=== PATIENT | male | born 1965 | race Caucasian/White ===

== ENCOUNTER 2021-09-13 01:59 | Observation (INO) | payer OTHER, SELFPAY ==
[2021-09-13] VITALS (26 sets, daily range): BP systolic 116–171; BP diastolic 78–98; PULSE 59–103; RESP 7–24; TEMP 36.3; O2SAT 97–100
--- NOTE | ~2021-09-13 | XR_ITS ---
EXAMINATION: XR chest 1V portable DATE: 09/13/2021 03:05 INDICATION: Weakness TECHNIQUE: frontal view of the chest was obtained. COMPARISON: None FINDINGS: Subtle small bandlike opacity lateral left midlung zone consistent with discoid atelectasis. No other airspace opacities, pulmonary edema, pleural effusion or pneumothorax. The cardiomediastinal silhoue tte is normal. IMPRESSION: 1. Mild linear discoid atelectasis/scarring the left midlung zone. Reviewed, dictated and finalized at location A.
--- NOTE | ~2021-09-13 | MR_ITS ---
EXAMINATION: MR brain/brain stem wo/w con DATE: 09/16/2021 13:25 INDICATION: Left hemiparesis. TECHNIQUE: Magnetic resonance imaging (MRI) of the brain and brainstem was performed without and with 17 mL MultiHance intravenous contrast. COMPARISON: Head CT 09/13/2021 FINDINGS: In the inferior left frontal lobe and genu of the corpus callosum, there are subacute infar cts characterized by decreased ADC and contrast enhancement. In the anterior interhemispheric fissure , there is material characterized by increased T2- and T1-weighted signal intensity. There are scatte red areas of nonspecific increased T2-weighted signal intensity in the cerebral white matter. There i s no abnormal mass lesion. The ventricles are normal in size. The paranasal sinuses are clear. The or bits are normal. The mastoid air cells are normal. IMPRESSION: 1. 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 2. Small volume of material in the anterior interhemispheric fissure, likely subacute hematoma. 3. Mild nonspecific cerebral white matter disease, which likely represents chronic small vessel ische israel disease. Reviewed, dictated and finalized at location A. IMPRESSION: 1. Subacute infarcts involving the inferior left frontal lobe and genu of the c orpus callosum. 2. Small volume of material in the anterior interhemispheric fissure, likely clark bacute hematoma. 3. Mild nonspecific cerebral white matter disease, which likely represents coiled coil inspector gabriela small vessel ischemic disease.
--- NOTE | ~2021-09-13 | US_ITS ---
EXAMINATION: US carotid duplex BI DATE: 09/16/2021 17:55 INDICATION: Left hemiparesis. Stroke. TECHNIQUE: Grayscale, color Doppler, and pulsed Doppler images of the cervical carotid arteries were obtained. The degree of vessel stenosis is placed in one of the following categories: normal, <50%, 5 0-69%, >=70% but less than near-occlusion, near-occlusion, or total occlusion. Note that percent sten osis relative to normal distal artery lumen diameter is indirectly measured from velocity measurement s as described by Suleiman, et al. Radiology 2003; 229:340-346. COMPARISON: None. FINDINGS: RIGHT: The right common carotid artery (CCA) peak systolic velocity (PSV) is 97 cm/s. The right internal car otid artery (ICA) PSV is 90 cm/s. The right ICA end-diastolic velocity (EDV) is 27 cm/s. The right IC A/CCA PSV ratio is 0.9. Grayscale and color Doppler images yield an estimate of <50% diameter reducti on from plaque in the ICA. There is antegrade flow in the right vertebral artery. LEFT: The left CCA PSV is 92 cm/s. The left ICA PSV is 101 cm/s. The left ICA EDV is 36 cm/s. The left ICA/ CCA PSV ratio is 1.1. Grayscale and color Doppler images yield an estimate of <50% diameter reduction from plaque in the ICA. There is antegrade flow in the left vertebral artery. IMPRESSION: 1. <50% stenosis in the right internal carotid artery. 2. <50% stenosis in the left internal carotid artery. Reviewed, dictated and finalized at location A.
--- NOTE | ~2021-09-13 | CT_ITS ---
EXAMINATION: CT brain wo con DATE: 09/13/2021 03:24 INDICATION: Diplopia. Right facial weakness. Left arm numbness. TECHNIQUE: Computed tomography (CT) of the head was performed without intravenous contrast. The mA wa s adjusted according to patient size. Iterative reconstruction technique was employed. The dose-lengt h product was 681.00 mGy-cm. COMPARISON: None FINDINGS: There is low attenuation involving the genu and anterior body of the corpus callosum. There is low-attenuation in the deep bilateral frontal lobe white matter. There is no intracranial hemorrh age or abnormal mass lesion. The ventricles are normal in size. The orbits are normal. There is mild mucosal thickening in the paranasal sinuses. The mastoid air cells are normal. IMPRESSION: 1. Low attenuation involving the genu and anterior body of the corpus callosum and bilateral frontal lobe deep white matter, likely subacute or chronic encephalomalacia that could be from infarct or dif fuse axonal injury. Reviewed, dictated and finalized at location B. IMPRESSION: 1. Low attenuation involving the genu and anterior body of the corpus callosum and bilateral frontal lobe deep white matter, likely subacute or chronic enceph alomalacia that could be from infarct or diffuse axonal injury.
--- NOTE | 2021-09-13 02:14 | ECG_ITS ---
Measurements Intervals [place] Rate: 88 P: 56 UT: 174 QRS: 25 QRSD: 107 T: 41 QT: 347 QTc: 421 Interpretive Statements SINUS RHYTHM BORDERLINE ST-T WAVE ABNORMALITY- INF/LAT LEADS BASELINE ARTIFACT- I, II, III, AVR, AVL, AVF BORDERLINE ECG Electronically Signed On 09-13-2021 6:43:14 CDT by Michael Ferrell D.O.
[2021-09-13 02:17] LABS: Glucose Point of Care 119 mg/dl (65-105)
[2021-09-13 02:33] LABS: Basophils Absolute Auto 0.1 K/mm3 (0.0-0.1); Basophils Percent Auto 0.6 % (0.2-1.2); Eosinophils Absolute Auto 0.1 K/mm3 (0-0.3); Eosinophils Percent Auto 0.6 % (0-4.4); Hematocrit 48.5 % (42.0-52.0); Hemoglobin 17.5 g/dL (14.0-18.0); Immature Granulocyte Absolute 0.14 K/mm3 (0.00-0.031); Immature Granulocyte Percent A 0.9 % (0-0.5); Lymphocytes Percent Auto 18.3 % (18.3-44.2); Mean Corpuscular HGB Conc 36.1 g/dl (32-36); Mean Corpuscular Hemoglobin 31.1 pg (26-34); Mean Corpuscular Volume 86.1 fl (80-100); Monocytes Absolute Auto 2.1 K/mm3 (0.1-0.6); Monocytes Percent Auto 12.7 % (2.6-8.5); Neutrophils Percent Auto 66.9 % (45.5-73.1); Platelet Count Result 357 k/mm3 (150-375); Red Blood Count 5.63 M/mm3 (4.6-6.20); Red Cell Distribution Width 12.3 % (11.5-14.5); White Blood Count 16.4 K/mm3 (4.5-10.0)
[2021-09-13 02:38] LABS: Appearance Urine Clear (Clear); Bilirubin Urine Negative (Negative); Blood Urine Negative (Negative); Color Urine Yellow (Yellow); Glucose Urine UA Negative (Negative); Ketones Urine Negative (Negative); Leukocyte Esterase Ur Negative LEU/UL (Negative); Nitrate Urine Negative (Negative); Protein Urine Negative (Negative); Specific Grav Ur 1.015 (1.001-1.035)
[2021-09-13 02:44] LABS: Partial Thromboplastin Time 29.9 SECONDS (22.3-36.8)
[2021-09-13 02:47] LABS: Add Urine Microscopic? YES; Bacteria Urine Trace /hpf; Mucus Urine Rare /lpf; RBC Urine 0-2 /hpf (0-2); WBC Urine 0-3 /hpf
[2021-09-13 02:49] LABS: Amphetamine Screen Urine Negative (Negative); Barbiturate Screen Urine Negative (Negative); Benzodiazepines Screen Urine Negative (Negative); Cannabinoid Screen Urine Positive (Negative); Cocaine Screen Urine Positive (Negative); Methadone Screen Urine Negative (Negative); Opiate Screen Urine Negative (Negative); Phencyclidine Screen Urine Negative (Negative)
[2021-09-13 02:51] LABS: Ethanol < 10 mg/dL (<10)
[2021-09-13 03:05] LABS: Alanine Aminotransferase 32 U/L (6-50); Albumin Level 4.6 g/dL (3.5-5.1); Alkaline Phosphatase 53 U/L (38-126); Anion Gap 12 mmol/L (8-16); Aspartate Amino Transferase 28 U/L (17-59); Bilirubin,Total 1.4 mg/dL (0.2-1.3); Blood Urea Nitrogen 23 mg/dL (9-20); Calcium 9.4 mg/dL (8.4-10.2); Carbon Dioxide 27 mmol/L (22-30); Chloride 93 mmol/L (98-107); Estimated CRCL calculation 39 ml/min; Estimated Glomerular Filt Rate 30; Glucose 99 mg/dL (65-110); Potassium 2.5 mmol/L (3.4-5.0); Sodium 132 mmol/L (137-145)
[2021-09-13 03:14] LABS: Troponin I 0.092 ng/mL (0.000-0.034)
[2021-09-13 03:43] LABS: Creatine Kinase 49 U/L (55-170); Magnesium 2.2 mg/dL (1.6-2.3)
[2021-09-13] MEDS: POTASSIUM CHLORIDE 20 MEQ TABLET 40 MEQ PO (03:53)
[2021-09-13] MEDS: SODIUM CHLORIDE 0.9% IV 1,000 ML 999 ML IV CONT ×2 (03:55)
--- NOTE | 2021-09-13 05:11 | ED.NEUROSD ---
HPI - Neuro Symptoms/Deficit General Chief Complaint: Neuro Symptoms/Deficit <Donna Kim MD - Last Filed: 09/14/21 08:09> Stated Complaint: Facial Droop, Pain to face, numbness to face <Donna Kim MD - Last Filed: 09/14/21 08:09> Time Seen by Provider: 09/13/21 02:03 <Donna Kim MD - Last Filed: 09/14/21 08:09> Source: patient and RN notes reviewed <Donna Kim MD - Last Filed: 09/14/21 08:09> Mode of arrival: wheelchair <Donna Kim MD - Last Filed: 09/14/21 08:09> Limitations: no limitations <Donna Kim MD - Last Filed: 09/14/21 08:09> History of Present Illness HPI Narrative: This is a 56 year old male who presents for evaluation of right facial droop and double vision. Patient states last week he was having what he thought was an ocular migraine. He also reports having right facial droop and right neck pain. He reports having double vision that improves with covering 1 eye. He noticed last week that his left eye was going opposite direction of his left eye. He noticed left hand tingling this afternoon around 1500. His family took him to ER at [facility] for evaluation. PAtient left because the wait was too long. 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 He denies focal weakness. He denies nausea, vomiting or fever. <Donna Kim MD - Last Filed: 09/14/21 08:09> Onset (ago): week(s) (1) <Donna Kim MD - Last Filed: 09/14/21 08:09> Related Data Home Medications: Home Medications Medication Instructions Recorded Confirmed amlodipine 09/13/21 09/13/21 buspirone mg 09/13/21 cholecalciferol (vitamin D3) 09/13/21 cyanocobalamin (vitamin B-12) mcg 09/13/21 [Vitamin B-12] gabapentin 09/13/21 irbesartan mg 09/13/21 irbesartan mg 09/13/21 meloxicam 09/13/21 paroxetine HCl mg PO 09/13/21 trazodone 09/13/21 <Donna Kim MD - Last Filed: 09/14/21 08:09> Allergies/Adverse Reactions: Allergies Allergy/AdvReac Type Severity Reaction Status Date / Time codeine Allergy Itching Verified 09/13/21 02:02 morphine Allergy Vomiting Verified 09/13/21 02:02 tramadol Allergy Vomiting Verified 09/13/21 02:02 <Donna Kim MD - Last Filed: 09/14/21 08:09> Review of Systems Review of Systems: CONSTITUTIONAL: Denies fever, chills, or sweats. ENT: Denies rhinorrhea, congestion, sore throat, or otalgia. CARDIOVASCULAR: Denies chest pain, palpitations, or edema. RESPIRATORY: Denies cough or dyspnea. GASTROINTESTINAL: Denies abdominal pain, nausea, vomiting, or diarrhea. GENITOURINARY: Denies dysuria or hematuria. SKIN: Denies rash or itching. MUSCULOSKELETAL: joint pain, or myalgia. PSYCHIATRIC: Denies anxiety or depression. <Donna Kim MD - Last Filed: 09/14/21 08:09> All systems reviewed & are unremarkable except as noted in HPI and below <Donna Kim MD - Last Filed: 09/14/21 08:09> Constitutional: Constitutional: Denies chills and Denies fever(s) <Donna Kim MD - Last Filed: 09/14/21 08:09> Eyes: Eyes: Reports diplopia and Reports eye discharge <Donna Kim MD - Last Filed: 09/14/21 08:09> Respiratory: Respiratory: Denies cough and Denies dyspnea <Donna Kim MD - Last Filed: 09/14/21 08:09> [facility] Past Medical History Medical History: Medical History (Updated 09/13/21 @ 08:15 by Donna Kim MD) Chronic back pain 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 HEAD: Normocephalic, atraumatic
--- NOTE | 2021-09-13 06:04 | PC.NURSE ---
called [facility] for transfer to [facility]. No beds available and [facility] is accepting time critical diagnosis only.
[2021-09-13] MEDS: ASPIRIN 81 MG CHEWABLE TABLET 324 MG PO (06:18)
--- NOTE | 2021-09-13 13:50 | PC.NURSE ---
lunch tray ordered.
--- NOTE | 2021-09-13 17:17 | PC.NURSE ---
dinner ordered at this time
[2021-09-13 20:05] LABS: Basophils Absolute Auto 0.1 K/mm3 (0.0-0.1); Basophils Percent Auto 0.6 % (0.2-1.2); Eosinophils Absolute Auto 0.1 K/mm3 (0-0.3); Eosinophils Percent Auto 1.6 % (0-4.4); Hematocrit 45.5 % (42.0-52.0); Hemoglobin 15.7 g/dL (14.0-18.0); Immature Granulocyte Absolute 0.07 K/mm3 (0.00-0.031); Immature Granulocyte Percent A 0.8 % (0-0.5); Lymphocytes Absolute Auto 2.03 K/mm3 (0.9-3.2); Lymphocytes Percent Auto 23.9 % (18.3-44.2); Mean Corpuscular HGB Conc 34.5 g/dl (32-36); Mean Corpuscular Hemoglobin 30.4 pg (26-34); Mean Corpuscular Volume 88.2 fl (80-100); Mean Platelet Volume 9.1 fl (7.4-10.4); Neutrophils Absolute Auto 5.2 K/mm3 (1.3-6.7); Neutrophils Percent Auto 61.1 % (45.5-73.1); Platelet Count Result 279 k/mm3 (150-375); Red Blood Count 5.16 M/mm3 (4.6-6.20); Red Cell Distribution Width 12.7 % (11.5-14.5); White Blood Count 8.5 K/mm3 (4.5-10.0)
[2021-09-13 20:12] LABS: Alanine Aminotransferase 26 U/L (6-50); Albumin Level 3.7 g/dL (3.5-5.1); Alkaline Phosphatase 49 U/L (38-126); Anion Gap 5 mmol/L (8-16); Aspartate Amino Transferase 21 U/L (17-59); Bilirubin,Total 0.7 mg/dL (0.2-1.3); Blood Urea Nitrogen 20 mg/dL (9-20); Calcium 8.5 mg/dL (8.4-10.2); Carbon Dioxide 31 mmol/L (22-30); Chloride 99 mmol/L (98-107); Estimated CRCL calculation 79 ml/min; Estimated Glomerular Filt Rate > 60; Glucose 97 mg/dL (65-110); Magnesium 2.2 mg/dL (1.6-2.3); Sodium 135 mmol/L (137-145)
[2021-09-14] VITALS (81 sets, daily range): BP systolic 94–191; BP diastolic 56–104; PULSE 61–96; RESP 8–24; O2SAT 92–100
[2021-09-14] MEDS: POTASSIUM CHLORIDE 20 MEQ TABLET 40 MEQ PO (00:03)
[2021-09-14] MEDS: traZODone HCL 50 MG TABLET 100 MG PO ×2 (00:03→22:48)
--- NOTE | 2021-09-14 04:43 | PC.NURSE ---
Lori from [facility] transfer hotline just called stating they are still working on getting a bed for this patient just wanted an updated set of VS as well as checking on patient urine drug screen
[2021-09-14] MEDS: PARoxetine 20 MG TABLET 40 MG PO (09:41)
[2021-09-14] MEDS: ASPIRIN 81 MG CHEWABLE TABLET 324 MG PO (09:41)
[2021-09-14] MEDS: IRBESARTAN 150 MG TABLET 300 MG PO (09:41)
[2021-09-14] MEDS: diphenhydrAMINE HCl CAP 25 MG CAPSULE PO (22:48)
[2021-09-14] MEDS: ACETAMINOPHEN 325 MG TABLET 650 MG PO (22:48)
[2021-09-14] MEDS: METOCLOPRAMIDE HCL INJ 10 MG/2 ML VIAL IV PUSH (22:48)
[2021-09-15] VITALS (19 sets, daily range): BP systolic 142–168; BP diastolic 65–96; PULSE 61–90; RESP 13–20; TEMP 36.5; O2SAT 98–99; BMI 24.6
--- NOTE | 2021-09-15 04:55 | PC.NURSE ---
Lissa at [facility] transfer center called...still waiting for bed at [facility] for this patient.
[2021-09-15 05:30] LABS: Basophils Percent Auto 0.6 % (0.2-1.2); Eosinophils Absolute Auto 0.1 K/mm3 (0-0.3); Eosinophils Percent Auto 1.9 % (0-4.4); Hematocrit 43.5 % (42.0-52.0); Hemoglobin 15.1 g/dL (14.0-18.0); Immature Granulocyte Absolute 0.03 K/mm3 (0.00-0.031); Immature Granulocyte Percent A 0.4 % (0-0.5); Lymphocytes Absolute Auto 2.24 K/mm3 (0.9-3.2); Lymphocytes Percent Auto 33.4 % (18.3-44.2); Mean Corpuscular HGB Conc 34.7 g/dl (32-36); Mean Corpuscular Hemoglobin 30.8 pg (26-34); Mean Corpuscular Volume 88.6 fl (80-100); Monocytes Absolute Auto 0.6 K/mm3 (0.1-0.6); Monocytes Percent Auto 9.4 % (2.6-8.5); Neutrophils Absolute Auto 3.6 K/mm3 (1.3-6.7); Neutrophils Percent Auto 54.3 % (45.5-73.1); Platelet Count Result 242 k/mm3 (150-375); Red Blood Count 4.91 M/mm3 (4.6-6.20); Red Cell Distribution Width 12.4 % (11.5-14.5); White Blood Count 6.7 K/mm3 (4.5-10.0)
[2021-09-15 05:41] LABS: Anion Gap 3 mmol/L (8-16); Blood Urea Nitrogen 15 mg/dL (9-20); Calcium 8.7 mg/dL (8.4-10.2); Carbon Dioxide 31 mmol/L (22-30); Chloride 102 mmol/L (98-107); Estimated CRCL calculation 96 ml/min; Estimated Glomerular Filt Rate > 60; Glucose 98 mg/dL (65-110); Potassium 3.3 mmol/L (3.4-5.0); Sodium 136 mmol/L (137-145)
[2021-09-15 05:53] LABS: Troponin I < 0.012 ng/mL (0.000-0.034)
[2021-09-15] MEDS: ACETAMINOPHEN 325 MG TABLET 650 MG PO ×2 (08:06→18:56)
[2021-09-15] MEDS: PARoxetine 20 MG TABLET 40 MG PO (10:07)
--- NOTE | 2021-09-15 17:41 | PC.NURSE ---
bed status check - no beds at full capacity on waiting list
--- NOTE | 2021-09-15 19:43 | PM.IMHP ---
H&P: HPI History of Present Illness Date/Time: 09/15/21 19:43 Chief Complaint: Left hand weakness. Narrative: This is a 56-year-old male with past medical history significant for chronic back pain, hypertension, tobacco dependence, patient smokes 1 pack of cigarettes daily. Patient presented to the emergency room due to left hand weakness and double vision and headache. Patient was supposed to be transferred to [facility] however due to the lack of beds patient ended up staying in the emergency room for over 60 hours, however upon discussion with Neuro team it was determined that no intervention was necessary and you would be medically was decided the patient with stay in our facility for further workup and neurology consult. At the time of my visit patient complained of headache, is still having weakness of the hand on the left side and he states that his left handed . Patient denies any fevers, rigors, chills, nausea, vomiting, shortness of breath, chest pain, gait disturbance cough syncope, near syncope. Preliminary workup was significant for CT of the head with low attenuation involving the genu and anterior body of the corpus callosum and bilateral frontal lobe deep white matter, likely subacute or chronic encephalomalacia that could be from infarct or diffuse axonal injury. 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 Hypertension Family History Family History (Updated 09/15/21 @ 22:41 by Kathy Irene RN) Mother Hypertension Cerebrovascular accident Grandparent Hypertension Cerebrovascular accident Parkinson disease Diabetes mellitus Pancreatic cancer Social History Social History (Updated 09/13/21 @ 05:40 by Donna Kim MD) Smoking packs per day: 1 Smoking cigarettes per day: 20.0 Years smoked: 30 Smoking pack-years: 30.00 Smoking status: Current every day smoker Tobacco type: cigarettes Alcohol intake: never Substance use: current Substance use type: marijuana Spiritual care concerns: No Meds Home Medications and Allergies Home Medications Medication Instructions Recorded Confirmed Type amlodipine 5 mg PO DAILY 09/13/21 09/15/21 History buspirone 5 mg PO TID PRN 09/13/21 09/15/21 History cholecalciferol (vitamin D3) 1,250 mcg PO WEEKLY 09/13/21 09/15/21 History cyanocobalamin (vitamin B-12) 1,000 mcg PO DAILY 09/13/21 09/15/21 History [Vitamin B-12] gabapentin 600 mg PO BID 09/13/21 09/15/21 History irbesartan 300 mg PO DAILY 09/13/21 09/15/21 History meloxicam 15 mg PO DAILY 09/13/21 09/15/21 History paroxetine HCl 40 mg PO DAILY 09/13/21 09/15/21 History trazodone 50 mg PO HS 09/13/21 09/15/21 History Allergies Allergy/AdvReac Type Severity Reaction Status Date / Time codeine Allergy Itching Verified 09/13/21 02:02 morphine Allergy Vomiting Verified 09/13/21 02:02 tramadol Allergy Vomiting Verified 09/13/21 02:02 Vital Signs Vital Signs - 24 hr 09/14/21 20:36 09/14/21 22:29 09/14/21 22:30 Pulse Rate 68 62 61 Respiratory Rate 18 Blood Pressure 174/87 H Pulse Oximetry 100 100 98 09/14/21 22:31 09/14/21 22:43 09/14/21 22:45 Pulse Rate 63 63 61 Respiratory Rate 16 11 L Blood Pressure 179/96 H 179/96 H Pulse Oximetry 99 99 99 09/14/21 23:00 09/14/21 23:15 09/14/21 23:30 Pulse Rate 74 66 70 Respiratory Rate 17 18 17 Blood Pressure Pulse Oximetry 09/14/21 23:45 09/15/21 00:00 09/15/21 00:15 Pulse Rate 73 78 81 Respiratory Rate 15 14 15 Blood Pressure Pulse Oximetry 09/15/21 00:30 09/15/21 00:45 09/15/21 01:00 Pulse Rate 88 69 69 Respiratory Rate 19 15 15 Blood Pressure Pulse Oximetry 09/15/21 01:15 09/15/21 01:30 09/15/21 01:45 Pulse Rate 71 70 70 Respiratory Rate 14 15 15 Blood Pressure Pulse Oximetry 09/15/21 02:00 09/15/21 02:15 09/15/21 02:30 Pulse Rate 68 61 69 Respiratory Rate
[2021-09-15 20:17] LABS: Troponin I < 0.012 ng/mL (0.000-0.034)
[2021-09-15] MEDS: ASPIRIN 81 MG CHEWABLE TABLET 324 MG PO (20:39)
[2021-09-15 21:00] LABS: SARS-CoV-2 RNA PCR Negative
--- NOTE | 2021-09-15 21:40 | PC.NURSE ---
attempted to call IMU but states the nurse is busy and will call back
--- NOTE | 2021-09-15 21:41 | PC.NURSE ---
Called [facility] ([facility] and spoke to [place]. Informed her that patient was admitted to our facility and provided room number so they can call that floor directly to provide status on bed updates or patient status.
--- NOTE | 2021-09-15 22:49 | ADMGEN ---
This patient, Jimmie Mock, was admitted to IMU Room 209-01 at 2235 on 09/15/2021. Patient/family oriented to hospital policies and general routines including ID bracelet, bed and alarms, visiting hours, pain management, procedures, bathroom and other care routines, personal items, smoking policy, room service/diet, and visiting hours. Information on how to activate the Rapid Response Team has been discussed. Patient/Family are encouraged to report perceived risks to care and to ask questions if they do not understand what they are told or what they should do.
[2021-09-15] MEDS: traZODone HCL 50 MG TABLET 100 MG PO (23:23)
[2021-09-16] VITALS (16 sets, daily range): BP systolic 139–151; BP diastolic 74–104; PULSE 59–98; RESP 16–24; TEMP 35.9–36.8; O2SAT 96–100
[2021-09-16] MEDS: GABAPENTIN 300 MG CAPSULE 600 MG PO ×3 (01:25→17:53)
--- NOTE | 2021-09-16 03:26 | PM.IMHP ---
H&P: HPI History of Present Illness Date/Time: 09/16/21 03:26 Chief Complaint: Left hand weakness. Narrative: This is a 56-year-old male with past medical history significant for chronic back pain, hypertension, tobacco dependence, patient smokes 1 pack of cigarettes daily. Patient presented to the emergency room due to left hand weakness and double vision and headache. Patient was supposed to be transferred to [facility] however due to the lack of beds patient ended up staying in the emergency room for over 60 hours, however upon discussion with Neuro team it was determined that no intervention was necessary and you would be medically was decided the patient with stay in our facility for further workup and neurology consult. At the time of my visit patient complained of headache, is still having weakness of the hand on the left side and he states that his left handed . Patient denies any fevers, rigors, chills, nausea, vomiting, shortness of breath, chest pain, gait disturbance cough syncope, near syncope. Preliminary workup was significant for CT of the head with low attenuation involving the genu and anterior body of the corpus callosum and bilateral frontal lobe deep white matter, likely subacute or chronic encephalomalacia that could be from infarct or diffuse axonal injury. Patient has been admitted for further evaluation management and treatment. Review of Systems Review of Systems: Left hand weakness, double vision, headache. Constitutional: Constitutional: Denies chills, Denies fatigue, Denies fever(s), Reports headache(s), Denies malaise, Denies night sweats, Denies poor appetite and Denies weakness Eyes: Eyes: Reports diplopia ENT: Denies dysphagia, Denies vertigo, Denies dizziness, Denies nasal congestion, Denies nasal discharge, Denies nasal obstruction and Denies odynophagia Cardiovascular: Cardiovascular: Denies chest pain, Denies syncope, Denies pedal edema, Denies leg edema, Denies lightheadedness, Denies radiating jaw, neck or arm pain, Denies palpitations, Denies dyspnea, Denies dyspnea on exertion and Denies orthopnea Respiratory: Respiratory: Denies chest congestion, Denies cough, Denies excessive phlegm production, Denies dyspnea and Denies wheezing Gastrointestinal: Gastrointestinal: Denies abdominal pain, Denies dyspepsia, Denies heartburn, Denies diarrhea, Denies nausea and Denies vomiting Genitourinary: Genitourinary: Denies dysuria Musculoskeletal: Musculoskeletal: Denies arthralgias, Denies joint swelling, Denies limited range of motion and Denies muscle weakness Integumentary/Breasts: Skin/Breast: Denies rash Neurologic: Denies abnormal gait, Denies vertigo, Denies dizziness, Denies syncope, Reports headache(s), Reports focal weakness (Left hand), Denies numbness and Denies Sensory deficit (Neuro) Psychiatric: Psychiatric: Reports no additional psychiatric complaints and Reports as per HPI Endocrine: Endocrine: Denies cold intolerance, Denies heat intolerance, Denies polyphagia, Denies polydipsia, Denies polyuria and Denies palpitations Hematologic/Lymphatic: Hematologic/Lymphatic: Reports no additional hematologic/lymphatic complaints and Reports as per HPI Allergic/Immunologic: Allergic/Immunologic: Reports no additional allergic/immunologic complaints and Reports as per HPI PMFSH Past Medical History Medical History (Updated 09/16/21 @ 03:39 by Aguilar Taylor MD) Chronic back pain 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
[2021-09-16 05:05] LABS: Basophils Absolute Auto 0.1 K/mm3 (0.0-0.1); Basophils Percent Auto 0.9 % (0.2-1.2); Eosinophils Absolute Auto 0.1 K/mm3 (0-0.3); Hematocrit 42.9 % (42.0-52.0); Hemoglobin 14.9 g/dL (14.0-18.0); Immature Granulocyte Absolute 0.05 K/mm3 (0.00-0.031); Immature Granulocyte Percent A 0.7 % (0-0.5); Lymphocytes Absolute Auto 2.61 K/mm3 (0.9-3.2); Lymphocytes Percent Auto 37.3 % (18.3-44.2); Mean Corpuscular HGB Conc 34.7 g/dl (32-36); Mean Corpuscular Hemoglobin 31.2 pg (26-34); Mean Corpuscular Volume 89.9 fl (80-100); Monocytes Absolute Auto 0.6 K/mm3 (0.1-0.6); Neutrophils Absolute Auto 3.5 K/mm3 (1.3-6.7); Neutrophils Percent Auto 50.1 % (45.5-73.1); Platelet Count Result 238 k/mm3 (150-375); Red Blood Count 4.77 M/mm3 (4.6-6.20); Red Cell Distribution Width 12.3 % (11.5-14.5)
[2021-09-16 05:19] LABS: Alanine Aminotransferase 22 U/L (6-50); Albumin Level 3.6 g/dL (3.5-5.1); Alkaline Phosphatase 43 U/L (38-126); Anion Gap 7 mmol/L (8-16); Aspartate Amino Transferase 19 U/L (17-59); Bilirubin,Total 0.4 mg/dL (0.2-1.3); Blood Urea Nitrogen 17 mg/dL (9-20); Calcium 8.9 mg/dL (8.4-10.2); Carbon Dioxide 30 mmol/L (22-30); Chloride 103 mmol/L (98-107); Estimated CRCL calculation 96 ml/min; Estimated Glomerular Filt Rate > 60; Glucose 92 mg/dL (65-110); Potassium 4.1 mmol/L (3.4-5.0); Sodium 140 mmol/L (137-145)
--- NOTE | 2021-09-16 06:00 | ECHO_ITS ---
Patient Info Name: Jimmie Mock Age: 56 years : 1965 Gender: Male Ht: 74 in Wt: 191 lbs BSA: 2.13 m2 HR: 64 bpm BP: 147 / 81 mmHg Technical Quality: Good Exam Date: 09/16/2021 8:59 AM Exam Location: [facility] Patient Status: Outpatient Admit Date: 09/15/2021 Staff Ordering Physician: Paco Cho DO Operator Electronic Warfare: Christopher Cloud RDCS, RT Attending Provider: Mio Hunter MD Referring Physician: Tammie FRANKLIN; Exam Type: CA echo doppler color flow Study Info Indications I50.9 - Heart failure, unspecified Complete two-dimensional, color flow and Doppler transthoracic echocardiogram is performed. Strain analysis performed. Summary 1. Complete two-dimensional, color flow and Doppler transthoracic echocardiogram is performed. 2. Left ventricular chamber dimension is mildly enlarged. 3. Left ventricular systolic function is normal, estimated at 55-60%. 4. The left ventricular diastolic function is normal. 5. Ventricular septum is sigmoid shaped. No LVOT obstruction. 6. E/e' 6 is not elevated. 7. Global longitudinal strain is abnormal at -11.5%. Left Ventricle E/e' 6 is not elevated. Global longitudinal strain is abnormal at -11.5%. Left ventricular chamber dimension is mildly enlarged. Left ventricular systolic function is normal, estimated at 55-60%. The left ventricular diastolic function is normal. Ventricular septum is sigmoid shaped. No LVOT obstruction. Right Ventricle Right ventricular systolic function is normal and with normal TAPSE 2.1 cm. Right ventricular chamber dimension is normal. Left Atria Left atrial chamber dimension is normal. Right Atria Right atrial chamber dimension is normal. Aortic Valve The aortic valve is trileaflet. There is no aortic valve stenosis. There is no aortic valve regurgitation. Pulmonic Valve There is no pulmonic regurgitation. Mitral Valve There is no mitral valve stenosis. There is no mitral valve regurgitation. Tricuspid Valve There is no tricuspid valve regurgitation. Pericardium/Pleural There is no pericardial effusion. Inferior Vena Cava Normal inferior vena cava with >50% collapse upon inspiration consistent with normal right atrial pressure, 5 mmHg. Aorta The aortic root size at the sinus of Valsalva is normal. Left Ventricular Outflow Tract Name Value Normal LVOT 2D LVOT Diameter 2.3 cm LVOT Doppler LVOT Peak Gradient 2 mmHg LVOT Mean Gradient 1 mmHg LVOT VTI 15 cm LVOT VTI/AV VTI Ratio 0.8 LVOT Stroke Volume 64 ml LVOT CO 4.3 l/min LVOT CI 2.0 l/min/m2 Mitral Valve Name Value Normal MV Doppler MV Decel [place]
[2021-09-16] MEDS: IRBESARTAN 150 MG TABLET 300 MG PO (09:16)
[2021-09-16] MEDS: TOBRAMYCIN/DEXAMETHASONE OP 2.5 ML BTL 1 DROP EACH EYE ×4 (09:16→20:48)
[2021-09-16] MEDS: amLODIPine BESYLATE 5 MG TABLET PO (09:16)
[2021-09-16] MEDS: PARoxetine 20 MG TABLET 40 MG PO (09:16)
[2021-09-16] MEDS: MELOXICAM 7.5 MG TABLET 15 MG PO (09:16)
[2021-09-16] MEDS: CYANOCOBALAMIN 1,000 MCG TABLET 1000 MCG PO (09:16)
[2021-09-16] MEDS: ERGOCALCIFEROL 50,000 UNIT CAPSULE 50000 UNITS PO (09:17)
--- NOTE | 2021-09-16 15:09 | WPDNEURCNPN ---
Assessment and Plan Additional Plan 1 hypertension 2 chronic back pain 3 tobacco dependence 4 headaches with abnormal MRI that is subacute infarct involving the left frontal lobe and genu of the corpus callosum in addition to small anterior interhemispheric fissure possibly subacute hematoma all the medications noted plan most likely he will be discharged tomorrow with instruction to follow in the office will need a repeat MRI in 4 to 6 weeks for the evaluation of the interhemispheric fissure hematoma and because of that he will not be started on aspirin or Plavix he will not be driving and if necessary will refer him to the neurosurgeons for the opinion Consult date: 09/16/21 HPI: Jimmie Mock is a 56 year old male admitted to the hospital through the emergency room where he was brought for the complaints of right facial droop and double vision and with the exemption by the patient that he was having ocular migraine the double vision was disappearing with the eyes coverage 1 side or other side but he also complained of tingling sensation in the left hand. 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 His initial examination was consistent with right-sided facial droop with right periorbital swelling patient initially seen was in the emergency room while he was waiting for the bed transfer to [facility] and finally admitted to the hospital further testing since admission to [facility] include MRI of the brain which documented subacute infarct involving the inferior left frontal lobe and Pastor of the corpus callosum in addition to small volume material in the anterior interhemispheric fissure which is likely subacute [facility] CT scan on 09/13 was consistent with the encephalomalacia prior to the documentation by the MRI. Since admission echocardiogram documented only mild enlargement the left ventricular size ventricular septum sigmoid shape but no LV OT obstruction and left atrium was normal so as the right atrium. 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 Hypertension Family History Family History Mother Hypertension Cerebrovascular accident Grandparent Hypertension Cerebrovascular accident Parkinson disease Diabetes mellitus Pancreatic cancer Social History Social History Smoking packs per day: 1 Smoking cigarettes per day: 20.0 Years smoked: 30 Smoking pack-years: 30.00 Smoking status: Current every day smoker Tobacco type: cigarettes Alcohol intake: never Substance use: current Substance use type: marijuana Spiritual care concerns: No Meds Home Medications and Allergies Home Medications Medication Instructions Recorded Confirmed Type amlodipine 5 mg PO DAILY 09/13/21 09/15/21 History buspirone 5 mg PO TID PRN 09/13/21 09/15/21 History cholecalciferol (vitamin D3) 1,250 mcg PO WEEKLY 09/13/21 09/15/21 History cyanocobalamin (vitamin B-12) 1,000 mcg PO DAILY 09/13/21 09/15/21 History [Vitamin B-12] gabapentin 600 mg PO BID 09/13/21 09/15/21 History irbesartan 300 mg PO DAILY 09/13/21 09/15/21 History meloxicam 15 mg PO DAILY 09/13/21 09/15/21 History paroxetine HCl 40 mg PO DAILY 09/13
--- NOTE | 2021-09-16 16:55 | PM.IMPN ---
Progress Note: A&P Assessment and Plan (1) Acute cerebrovascular accident (CVA): Code(s): I63.9 - Cerebral infarction, unspecified Status: Acute Assessment and Plan: Presented with acute diplopia/left upper extremity weakness and tingling and numbness Head CT 09/13/2021 with low attenuation involving the genu and anterior body of corpus callosum and bilateral frontal lobe deep white matter likely subacute or chronic ankle malacia that could be from infarct diffuse axonal injury Brain MRI 09/16/2021 subacute infarcts involving the inferior left frontal lobe and genu of the corpus callosum, small volume of material in the anterior interhemispheric X officer likely subacute hematoma. Mild nonspecific cerebral white matter disease which likely represents chronic small vessel ischemic disease No history of chronic alcohol use Check A1c History of hypertension Echo with EF 55-60% no PFO or thrombus EKG sinus rhythm Telemetry with no arrhythmias noted COVID test is negative Discussed with neurology. Will stop his aspirin to small hematoma development Clinically stable however with persistent diplopia May need referral to neuro surgery. Waiting transfer to [facility] (2) Hypokalemia: Code(s): E87.6 - Hypokalemia Status: Acute Assessment and Plan: Replace as needed (3) Hypertension: Code(s): I10 - Essential (primary) hypertension Status: Inactive Assessment and Plan: Continue home meds (4) Headache: Code(s): R51.9 - Headache, unspecified Status: Acute Assessment and Plan: Patient with occipital headache initially Now headache is retro-orbital Continue gabapentin Continue trazodone Continue to monitor Subjective Date/time seen: 09/16/21 16:56 Interval history: HPI:This is a 56-year-old male with past medical history significant for chronic back pain, hypertension, tobacco dependence, patient smokes 1 pack of cigarettes daily. Patient presented to the emergency room due to left hand weakness and double vision and headache. Patient was supposed to be transferred [facility] however due to the lack of beds patient ended up staying in the emergency room for over 60 hours, however upon discussion with Neuro team it was determined that no intervention was necessary and you would be medically was decided the patient with stay in our facility for further workup and neurology consult. At the time of my visit patient complained of headache, is still having weakness of the hand on the left side and he states that his left handed . Patient denies any fevers, rigors, chills, nausea, vomiting, shortness of breath, chest pain, gait disturbance cough syncope, near syncope. Preliminary workup was significant for CT of the head with low attenuation involving the genu and anterior body of the corpus callosum and bilateral frontal lobe deep white matter, likely subacute or chronic encephalomalacia that could be from infarct or diffuse axonal injury. Patient has been admitted for further evaluation management and treatment. 09/16/2021 overnight events. Still has diplopia. Going for an MRI today. Left upper extremity weakness and tingling and numbness noted. No blurriness of vision Review of Systems Review of Systems: All systems reviewed & are unremarkable except as noted in HPI and below (HPI) Objective Data Vital Signs Vital Signs: Vital Signs - 24 hr 09/15/21 20:18 09/15/21 22:00 09/15/21 22:35 Temperature 97.7 F Pulse Rate 90 72 72 Respiratory Rate 16 16 Blood Pressure 168/84 H 164/89 H Pulse Oximetry 98 98 09/16/21 00:00 09/16/21 02:00 09/16/21 04:00 Temperature 98.3 F 97.5 F L Pulse Rate 74 63 59 L Respiratory Rate 16 18 Blood Pressure 149/74 H 147/81 H Pulse Oximetry 98 98 09/16/21 05:22 09/16/21 06:00 09/16/21 07:58 Temperature 97 F L Pulse Rate 81 76 Respiratory Rate 24 H Blood Pressure 151/83 H Pulse Oximetry
[2021-09-16] MEDS: traZODone HCL 50 MG TABLET PO (20:48)
--- NOTE | 2021-09-16 21:24 | PC.NURSE ---
This patient, Jimmie Mock, was received from ICU 9 on 09/16/21 at 2124. Patient oriented to unit policies and routines
[2021-09-17] VITALS (7 sets, daily range): BP systolic 141–163; BP diastolic 79–98; PULSE 69–88; RESP 16–20; TEMP 36.2–36.6; O2SAT 98–100
[2021-09-17 05:10] LABS: Alanine Aminotransferase 21 U/L (6-50); Albumin Level 3.7 g/dL (3.5-5.1); Alkaline Phosphatase 42 U/L (38-126); Anion Gap 2 mmol/L (8-16); Aspartate Amino Transferase 17 U/L (17-59); Bilirubin,Total 0.3 mg/dL (0.2-1.3); Blood Urea Nitrogen 15 mg/dL (9-20); Calcium 8.8 mg/dL (8.4-10.2); Carbon Dioxide 35 mmol/L (22-30); Chloride 101 mmol/L (98-107); Cholesterol 136 mg/dL (0-200); Estimated CRCL calculation 96 ml/min; Estimated Glomerular Filt Rate > 60; Glucose 97 mg/dL (65-110); HDL Direct 45 mg/dL; Potassium 3.9 mmol/L (3.4-5.0); Sodium 138 mmol/L (137-145); Triglycerides 77 mg/dL (<150)
[2021-09-17 05:21] LABS: LDL Cholesterol Direct 62 mg/dL
[2021-09-17 05:50] LABS: Basophils Absolute Auto 0.1 K/mm3 (0.0-0.1); Basophils Percent Auto 1.1 % (0.2-1.2); Eosinophils Absolute Auto 0.1 K/mm3 (0-0.3); Eosinophils Percent Auto 2.1 % (0-4.4); Hematocrit 40.5 % (42.0-52.0); Hemoglobin 13.5 g/dL (14.0-18.0); Immature Granulocyte Absolute 0.03 K/mm3 (0.00-0.031); Immature Granulocyte Percent A 0.5 % (0-0.5); Lymphocytes Absolute Auto 2.32 K/mm3 (0.9-3.2); Lymphocytes Percent Auto 35.3 % (18.3-44.2); Mean Corpuscular HGB Conc 33.3 g/dl (32-36); Mean Corpuscular Hemoglobin 30.4 pg (26-34); Mean Corpuscular Volume 91.2 fl (80-100); Mean Platelet Volume 9.2 fl (7.4-10.4); Monocytes Absolute Auto 0.6 K/mm3 (0.1-0.6); Monocytes Percent Auto 9.7 % (2.6-8.5); Neutrophils Absolute Auto 3.4 K/mm3 (1.3-6.7); Neutrophils Percent Auto 51.3 % (45.5-73.1); Platelet Count Result 266 k/mm3 (150-375); Red Blood Count 4.44 M/mm3 (4.6-6.20); Red Cell Distribution Width 12.4 % (11.5-14.5); White Blood Count 6.6 K/mm3 (4.5-10.0)
[2021-09-17] MEDS: IRBESARTAN 150 MG TABLET 300 MG PO (09:44)
[2021-09-17] MEDS: CYANOCOBALAMIN 1,000 MCG TABLET 1000 MCG PO (09:45)
[2021-09-17] MEDS: PARoxetine 20 MG TABLET 40 MG PO (09:45)
[2021-09-17] MEDS: GABAPENTIN 300 MG CAPSULE 600 MG PO (09:45)
[2021-09-17] MEDS: MELOXICAM 7.5 MG TABLET 15 MG PO (09:45)
[2021-09-17] MEDS: amLODIPine BESYLATE 5 MG TABLET PO (09:46)
[2021-09-17] MEDS: TOBRAMYCIN/DEXAMETHASONE OP 2.5 ML BTL 1 DROP EACH EYE ×2 (09:46→13:59)
--- NOTE | 2021-09-17 11:43 | PM.IMPN ---
Progress Note: A&P Assessment and Plan (1) Acute cerebrovascular accident (CVA): Code(s): I63.9 - Cerebral infarction, unspecified Status: Acute Assessment and Plan: Presented with acute diplopia/left upper extremity weakness and tingling and numbness Head CT 09/13/2021 with low attenuation involving the genu and anterior body of corpus callosum and bilateral frontal lobe deep white matter likely subacute or chronic ankle malacia that could be from infarct diffuse axonal injury Brain MRI 09/16/2021 subacute infarcts involving the inferior left frontal lobe and genu of the corpus callosum, small volume of material in the anterior interhemispheric X officer likely subacute hematoma. Mild nonspecific cerebral white matter disease which likely represents chronic small vessel ischemic disease No history of chronic alcohol use Check A1c History of hypertension Echo with EF 55-60% no PFO or thrombus EKG sinus rhythm Telemetry with no arrhythmias noted COVID test is negative Discussed with neurology. Will stop his aspirin to small hematoma development Clinically stable however with persistent diplopia He will need follow-up with Neurology as an outpatient basis in restart aspirin when more stable. If worsens need follow-up with Neurosurgery sooner Plan for discharge home if okay with Neurology (2) Hypokalemia: Code(s): E87.6 - Hypokalemia Status: Acute Assessment and Plan: Replace as needed (3) Hypertension: Code(s): I10 - Essential (primary) hypertension Status: Inactive Assessment and Plan: Continue home meds (4) Headache: Code(s): R51.9 - Headache, unspecified Status: Acute Assessment and Plan: Patient with occipital headache initially Now headache is retro-orbital Continue gabapentin Continue trazodone Continue to monitor Subjective Date/time seen: 09/17/21 11:43 Interval history: HPI:This is a 56-year-old male with past medical history significant for chronic back pain, hypertension, tobacco dependence, patient smokes 1 pack of cigarettes daily. Patient presented to the emergency room due to left hand weakness and double vision and headache. Patient was supposed to be transferred to [facility] however due to the lack of beds patient ended up staying in the emergency room for over 60 hours, however upon discussion with Neuro team it was determined that no intervention was necessary and you would be medically was decided the patient with stay in our facility for further workup and neurology consult. At the time of my visit patient complained of headache, is still having weakness of the hand on the left side and he states that his left handed . Patient denies any fevers, rigors, chills, nausea, vomiting, shortness of breath, chest pain, gait disturbance cough syncope, near syncope. Preliminary workup was significant for CT of the head with low attenuation involving the genu and anterior body of the corpus callosum and bilateral frontal lobe deep white matter, likely subacute or chronic encephalomalacia that could be from infarct or diffuse axonal injury. Patient has been admitted for further evaluation management and treatment. 09/16/2021 no overnight events. Still has diplopia. Going for an MRI today. Left upper extremity weakness and tingling and numbness noted. No blurriness of vision 09/17/2021 no overnight events. Diplopia persists but not worsened. Left arm feels okay. MRI carotid Doppler and echocardiogram finding reviewed with the patient Review of Systems Review of Systems: All systems reviewed & are unremarkable except as noted in HPI and below (HPI) Exam Narrative: Narrative: Patient lying in the bed, no acute distress Const: Cooperative, comfortable, no acute distress, well developed, alert, awake, Physically active and other (Well-appearing) HENMT: Normal cephalic atraumatic Eyes: PERRLA, unable to abduct right eye other extraocular musc
--- NOTE | 2021-09-17 14:19 | PM.DS ---
DS: Admitting Diagnosis Discharge Date 09/17/2021 Admitting Diagnosis Visual problem DS: Discharge Diagnosis Discharge Diagnosis (1) Acute cerebrovascular accident (CVA): Code(s): I63.9 - Cerebral infarction, unspecified Status: Acute Assessment and Plan: Presented with acute diplopia/left upper extremity weakness and tingling and numbness Head CT 09/13/2021 with low attenuation involving the genu and anterior body of corpus callosum and bilateral frontal lobe deep white matter likely subacute or chronic ankle malacia that could be from infarct diffuse axonal injury Brain MRI 09/16/2021 subacute infarcts involving the inferior left frontal lobe and genu of the corpus callosum, small volume of material in the anterior interhemispheric X officer likely subacute hematoma. Mild nonspecific cerebral white matter disease which likely represents chronic small vessel ischemic disease No history of chronic alcohol use Will A1c is normal History of hypertension Echo with EF 55-60% no PFO or thrombus EKG sinus rhythm Telemetry with no arrhythmias noted COVID test is negative Discussed with neurology. Stopped his aspirin due to small hematoma development Clinically stable however with persistent diplopia He will need follow-up with Neurology as an outpatient basis and restart aspirin when more stable. If worsens need follow-up with Neurosurgery sooner Discussed with neurology. Nephrology okay with discharge since clinically stable and he will follow-up as an outpatient basis (2) Hypokalemia: Code(s): E87.6 - Hypokalemia Status: Acute Assessment and Plan: Replace as needed (3) Hypertension: Code(s): I10 - Essential (primary) hypertension Status: Inactive Assessment and Plan: Continue home meds increase amlodipine to 10 mg daily at discharge (4) Headache: Code(s): R51.9 - Headache, unspecified Status: Acute Assessment and Plan: Patient with occipital headache initially Now headache is retro-orbital Continue gabapentin Continue trazodone Continue to monitor DS: Summary Hospital Course Hospital Course: See above Time Spent with Patient Time attestation: Total time spent providing and/or coordinating discharge services: 50 minutes Exam Narrative: Narrative: Patient lying in the bed, no acute distress Const: Cooperative, comfortable, no acute distress, well developed, alert, awake, Physically active and other (Well-appearing) HENMT: Normal cephalic atraumatic Eyes: PERRLA, unable to abduct right eye other extraocular muscle movement intact Neck: Supple, nontender Resp: Normal respiratory effort and able to speak in complete sentences, clear to auscultation bilaterally, no crackles, no rales, no rhonchi and no wheezes Cardio: Regular rate and rhythm, S1-S2 heard GI: Soft, nondistended, nontender, no organomegaly, normoactive bowel sounds Skin: Normal color no rashes Neuro: Alert and oriented x3 and CN's II-XI intact bilaterally except for extraocular muscle, normal cognition, normal facial asymmetry, normal speech. No motor deficits Extrem: No edema cyanosis or clubbing DS: Data Data Completed and Pending Completed studies during hospitalization: Exam Type: CA echo doppler color flow Study Info Indications I50.9 - Heart failure, unspecified Complete two-dimensional, color flow and Doppler transthoracic echocardiogram is performed. Strain analysis performed. Summary 1. Complete two-dimensional, color flow and Doppler transthoracic echocardiogram is performed. 2. Left ventricular chamber dimension is mildly enlarged. 3. Left ventricular systolic function is normal, estimated at 55-60%. 4. The left ventricular diastolic function is normal. 5. Ventricular septum is sigmoid shaped. No LVOT obstruction. 6. E/e' 6 is not elevated. 7. Global longitudinal strain is abnormal at -11.5%.
--- NOTE | 2021-09-17 16:04 | PC.NURSE ---
09/17/21 15:38 Patient discharged to home. Education was provided on medication and physician directions. Patient had no questions at this time.
== END 2021-09-17 15:38 | disposition home or self-care (01) ==
LOC: ANHED 09-15 19:37 → ANHIMU 09-15 20:33
PROVIDERS: Emergency Medicine; General Practice; Admitting Provider Internal Medicine; Emergency Provider Emergency Medicine; Visit Provider Internal Medicine
DX: I63.9 Cerebral infarction, unspecified (principal); E87.6 Hypokalemia; R51.9 Headache, unspecified; M54.2 Cervicalgia; R29.704 NIHSS score 4; M54.9 Dorsalgia, unspecified; G89.29 Other chronic pain; I10 Essential (primary) hypertension; F17.210 Nicotine dependence, cigarettes, uncomplicated; Z20.822 Contact with and (suspected) exposure to COVID-19
CPT/HCPCS: 36415; 70450; 70553; 71045; 80048; 80053; 80061; 80307; 81001; 82550; 82948; 83036; 83735; 84484; 85025; 85610; 85730; 93005; 93306; 93880; 96360; 96361; 96374; 97161; 97165; 99285; A9270; A9577; C9803; G0378; G0379; J2765; J7030; U0003; U0005

== ENCOUNTER 2022-06-19 08:29 | Outpatient (CLI) | payer OTHER, SELFPAY ==
--- NOTE | 2022-06-19 11:00 | NEURO_ITS ---
Impression: # Complains of pain and numbness in hands. # No Carpal Tunnel Syndrome or ulnar neuropathy. # Normal nerve conduction study. # Normal needle/EMG exam. Motor Nerve Conduction Upper Extremities Median Nerve Conduction Velocity (m/sec) Terminal Latency (msec) Response Voltage(mV) Elbow-Wrist Wrist Elbow Wrist Right 60 3.2 4 5 Left 59 3.4 4 4 Ulnar Nerve Conduction Velocity (m/sec) Terminal Latency (msec) Response Voltage(mV) Above Elbow Below Elbow Wrist Above Elbow Below Elbow Wrist Right 57 2.6 5 6 Left 57 2.6 6 6 F-Wave Latency Median (ms) Ulnar (ms) Right 29.5 29.9 Left 29.6 29.9 Sensory Nerve Conduction Upper Extremities Median Nerve Stimulation Terminal Latency (msec) Wrist/Digit Response Voltage (uV) Wrist Right 3.3/3.3 36/36 Left 3.2/3.2 56/53 Ulnar Nerve Stimulation Terminal Latency (msec) Wrist/Digit Response Voltage (uV) Wrist Right 2.8 56 Left 2.8 59 Radial Nerve Terminal Latency (msec) Response Voltage(mV) Right 2.1 15 Left 2.1 26 Left Right Muscles Examined Fibrillation Fasciculation Scarcity Voltage Duration Left Right Left Right Left Right Left Right Left Right Deltoid Biceps X X Brachioradialis Triceps X X Pronator Teres X X Ext Indicis X X Ext Digitorum X X Abd Poll Brev X X 1st Dorsal Interosseus Paraspinals MTDD
== END 2022-06-19 08:30 | disposition home or self-care (01) ==
LOC: ANHNEURO 08:32
PROVIDERS: PCP Family Medicine; Visit Provider Psychiatry & Neurology Neurology
DX: R20.0 Anesthesia of skin (principal)
CPT/HCPCS: 95886; 95911